=== PATIENT | female | born 1965 | race American Indian/Alaskan Native ===

== ENCOUNTER 2018-09-25 17:31 | Emergency (ER) | payer MEDICARE, OTHER ==
[2018-09-25 17:32] VITALS: BMI 34.4
--- NOTE | 2018-09-25 18:03 | ED PDOC ---
Arrival/HPI - General Chief Complaint: Abnormal Skin Integrity Time Seen by Provider: 09/25/18 17:58 - History of Present Illness Narrative History of Present Illness (Text): 09/25/18 18:01 Patient presents with abscess to L buttock x 1 month. She reports that it previously opened and drained but has now recurred. Denies fever. Reports normal bowel and bladder habits. Past Medical History - Infectious Disease Hx of Infectious Diseases: None - Cardiac Hx Hypertension: Yes - Pulmonary Hx Sleep Apnea: Yes - HEENT Hx HEENT Disorder: Yes Hx Cataracts: Yes Other/Comment: L eye surgery jul 07, 2017 - Endocrine/Metabolic Hx Diabetes Mellitus Type 1: Yes - Psychiatric Hx Substance Use: No - Surgical History Hx Cataract Extraction: Yes Hx Section: Yes (x1) - Anesthesia Hx Anesthesia: Yes Hx Anesthesia Reactions: No Hx Malignant Hyperthermia: No Family/Social History Family/Social History: No Known Family HX Smoking Status: Never Smoked Hx Alcohol Use: No Hx Substance Use: No Allergies/Home Meds Allergies/Adverse Reactions: Allergies No Known Allergies Allergy (Verified 07/19/18 15:20) Home Medications: Home Meds Medication Instructions Recorded Confirmed Prednisolone Acetate/Pf 1 drop LEFTEYE DAILY 07/19/18 07/19/18 [Prednisolone Acet 1% Eye Drop] RX: Atropine 1% Ophth [Atropisol 1 drop LEFTEYE DAILY 07/19/18 07/19/18 1% Ophth] RX: Dorzolamide HCl/Timolol Maleat 1 drop LEFTEYE DAILY 07/19/18 07/19/18 [Dorzolamide-Timolol Eye Drops] RX: Lisinopril [Prinivil] 1 tab PO DAILY 07/19/18 07/19/18 RX: Polymyxin B Sulf/Trimethoprim 1 drop LEFTEYE DAILY 07/19/18 07/19/18 [Polymyxin B-Tmp Eye Drops] amLODIPine [Norvasc] 1 tab PO DAILY 07/19/18 07/19/18 Review of Systems - Review of Systems Constitutional: absent: Fatigue, Fevers Respiratory: absent: SOB, Cough, Sputum, Wheezing Cardiovascular: absent: Chest Pain, Palpitations, Edema Gastrointestinal: absent: Abdominal Pain, Constipation, Diarrhea, Nausea, Vomiting Genitourinary Female: absent: Dysuria, Frequency, Hematuria, Urine Output Changes Musculoskeletal: absent: Arthralgias Skin: Abscess (L buttock) Neurological: absent: Headache, Dizziness, Focal Weakness Physical Exam Temperature: Afebrile Blood Pressure: Normal Pulse: Regular Respiratory Rate: Normal Appearance: Positive for: Well-Appearing, Non-Toxic, Comfortable Pain Distress: None Mental Status: Positive for: Alert and Oriented X 3 - Systems Exam Head: Present: Atraumatic, Normocephalic Pupils: Present: PERRL Extroacular Muscles: Present: EOMI Conjunctiva: Present: Normal Abdomen: No: Tenderness, Distention Upper Extremity: Present: Normal Inspection Lower Extremity: Present: Normal Inspection, Normal ROM, Other (2cm fluctuant abscess to L buttock. no surrounding erythema). No: Tenderness Neurological: Present: Gait Normal Psychiatric: Present: Alert, Oriented x 3 Medical Decision Making ED Course and Treatment: 09/25/18 18:11 I&D was performed with purulent drainage. No surrounding erythema. No complaint of fever. Was given detailed return instructions. Disposition/Present on Arrival - Present on Arrival Any Indicators Present on Arrival: No History of DVT/PE: No History of Uncontrolled Diabetes: No Urinary Catheter: No History of Decub. Ulcer: No History Surgical Site Infection Following: None - Disposition Have Diagnosis and Disposition been Completed?: Yes Diagnosis: Abscess Disposition: HOME/ ROUTINE Disposition Time: 18:10 Patient Plan: Discharge Condition: GOOD Discharge Instructions (ExitCare): Abscess Incision and Drainage (DC) Additional Instructions: Follow-up with PMD within 2 days. You need wound check in 2 days. Keep wound clean. Return immediately with any worsening complaints. Forms: [employer] (Bengali) - Incision & Drainage Of Abscess Anesthesia: Lidocaine 1% Prep Used: Betadine Procedure: Incised W/Scalpel Blade#: (11), Drained Pus, Probed To Break Up Loculations, Packed W/Gauze
[2018-09-25 18:07] VITALS: BP 134/80
[2018-09-25 18:26] VITALS: O2SAT 99
[2018-09-25 18:44] VITALS: PULSE 104; RESP 19
[2018-09-25 18:46] VITALS: TEMP 98.3
== END 2018-09-25 19:10 | disposition home or self-care (01) ==
LOC: ED 17:31
DX: L02.31 Cutaneous abscess of buttock (principal)